=== PATIENT | female | born 1955 | race Two or more races ===

== ENCOUNTER 2017-08-04 10:57 | Day surgery (SDC) | payer MEDICAID ==
[~2017-08-04 10:57] MED LIST: Lactated Ringers 1,000 ML IV SCH; Lidocaine 1% 4 ML ONE; Lidocaine 1%/Sod Bicarbonate in NS 8.4% 1 ML Syringe PRN; Midazolam 1 MG/ML 2 ML SDV ONE; Ondansetron 4 MG/2 ML SDV ONE; Phenylephrine 1% 10 MG/ML SDV ONE; Propofol 200 MG/20 ML SDV ONE; Rocuronium 50 MG/5 ML Vial ONE; Sodium Chloride 0.9% 10 ML Syringe FLUSH PRN; Succinylcholine 200 MG/10 ML MDV ONE; fentaNYL 250 MCG/5 ML SDV ONE
--- NOTE | 2017-08-04 11:25 | PCM.PREANE ---
Preanesthetic Assessment - Procedure Proposed Procedure: laparoscopic cholecystectomy - Anesthesia/Transfusion/Family Hx Anesthesia History: Prior Anesthesia Without Reaction Family History of Anesthesia Reaction: No Transfusion History: No Prior Transfusion(s) - Review of Systems General: Chills Pulmonary: No Symptoms Cardiovascular: Other (HTN, hyperlipidemia ) Gastrointestinal: Abdominal Pain, Decreased Appetite, Nausea Neurological: Dizziness (patient gets dizzy easily and has motion sickness ) Other: Reports: Diabetes, Depression - Physical Assessment NPO Status Date: 08/04/17 NPO Status Time: 04:00 O2 Sat by Pulse Oximetry: 96 Respiratory Rate: 16 Vital Signs: Last Vital Signs Temp 36.4 C 08/04/17 11:05 Pulse 70 08/04/17 11:05 Resp 16 08/04/17 11:05 BP 178/86 H 08/04/17 11:05 Pulse Ox 96 08/04/17 11:05 Height: 1.6 m Weight: 67.585 kg ASA Class: 2 Mental Status: Alert & Oriented x3 Dentition: Reports: Dentures (upper and lower ) Thyro-Mental Finger Breadths: 3 Mouth Opening Finger Breadths: 3 ROM/Head Extension: Full Lungs: Clear to Auscultation Cardiovascular: Regular Rate, Regular Rhythm - Allergies Allergies/Adverse Reactions: Allergies Allergy/AdvReac Type Severity Reaction Status Date / Time No Known Allergies Allergy Verified 08/01/17 12:39 - Blood Blood Available: No Product(s) Available: None - Anesthesia Plan Beta Maryjo: Metoprolol Med Last Dose Date: 08/04/17 Med Last Dose Time: 10:30 - Acknowledgements Anesthesia Type Planned: General Anesthesia Pt an Appropriate Candidate for the Planned Anesthesia: Yes Alternatives and Risks of Anesthesia Discussed w Pt/Guardian: Yes Pt/Guardian Understands and Agrees with Anesthesia Plan: Yes PreAnesthesia Questionnaire HEENT History: Reports: Other (See Below) Other HEENT History: middle ear effusion, glasses, and dentures Cardiovascular History: Reports: High Cholesterol, Hypertension, Other (See Below) Other Cardiovascular History: atypical chest pain Respiratory History: Reports: Other (See Below) Other Respiratory History: latent TB Gastrointestinal History: Reports: Other (See Below) Other Gastrointestinal History: RUQ bloating, abdominal pain, gallbladder disease, constipation Genitourinary History: Reports: Other (See Below) Other Genitourinary History: hematuria, Left flank pain 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 History: Reports: Other (See Below) Other 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 History: L elbow pain, neck pain Neurological History: Reports: None Psychiatric History: Reports: Depression Endocrine/Metabolic History: Reports: Diabetes, Type II Hematologic History: Reports: None Immunologic History: Reports: None Oncologic (Cancer) History: Reports: None Dermatologic History: Reports: None - Past Surgical History Head Surgeries/Procedures: Reports: None Respiratory Surgical History: Reports: None GI Surgical History: Reports: None Neurological Surgical History: Reports: None Oncologic Surgical History: Reports: None - SUBSTANCE USE Smoking Status *Q: Never Smoker Second Hand Smoke Exposure: No Recreational Drug Use History: No - HOME MEDS Home Medications: Home Meds Aspirin [Halfprin] 81 mg PO DAILY 12/24/16 [History] Canagliflozin/Metformin HCl [Invokamet 50-1,000 mg Tablet] 1 tab PO BIDMEALS 06/02 [History] FLUoxetine [PROzac] 20 mg PO DAILY 12/24/16 [History] Metoprolol Succinate [Toprol XL] 100 mg PO DAILY 12/24/16 [History] Meloxicam 7.5 mg PO DAILY PRN 08/01/17 [History] atorvaSTATin [Lipitor] 40 mg PO DAILY 08/01/17 [History] - CURRENT (IN HOUSE) MEDS Current Meds: Current Medications Lactated Ringer's (Ringers, Lactated) 1,000 mls @ 125 mls/hr IV ASDIRECTED AHSAN Stop: 08/04/17 23:00 Lidocaine/Sodium Bicarbonate (Buffered Lidocaine 1% In Ns 8.4%) 0.25 ml .XX ONETIME PRN PRN Reason: Prior to IV Start Stop: 08/04/17 18:00 Sodium Chloride (Saline Flush) 10 ml FLUSH ASDIRECTED PRN PRN Reason: Keep Vein Open Stop: 08/04/17 18:00 Discontinued Medications Fentanyl (Sublimaze) Confirm Administered Dose 250 mcg .ROUTE .STK-MED ONE Stop: 08/04/17 10:34 Lidocaine HCl (Xylocaine-Mpf 1%) Confirm Administered Dose 4 mls @ as directed .ROUTE .STK-MED ONE Stop: 08/04/17 10:33 Midazolam HCl (Versed 1 Mg/Ml) Confirm Administered Dose 2 mg .ROUTE .STK-MED ONE Stop: 08/04/17 10:36 Ondansetron HCl (Zofran) Confirm Administered Dose 4 mg .ROUTE .STOnAir3G-MED ONE Stop: 08/04/17 10:33 Phenylephrine HCl (Emmanuel-Synephrine) Confirm Administered Dose 10 mg .ROUTE .STOnAir3G- MED ONE Stop: 08/04/17 10:42 Propofol (Diprivan 20 Ml) Confirm Administered Dose 200 mg .ROUTE .STOnAir3G-MED ONE Stop: 08/04/17 10:33 Rocuronium Castaner (Zemuron) Confirm Administered Dose 50 mg .ROUTE .STOnAir3G-MED ONE Stop: 08/04/17 10:33 Succinylcholine Chloride (Quelicin) Confirm Administered Dose 200 mg .ROUTE .[employer] -MED ONE Stop: 08/04/17 10:37
[2017-08-04] MEDS ORDERED: Scopolamine 1.5 MG Transdermal Patch TRDERM ONE (11:33)
[2017-08-04] MEDS ORDERED: Bupivacaine 0.5%/EPINEPHrine 1:200,000 50 ML MDV ONE (11:35)
[2017-08-04] MEDS: Lidocaine 1% with EPINEPHrine 1:100,000 20 ML MDV ONE ×2 (12:16→12:36)
[2017-08-04] MEDS ORDERED: ceFAZolin 1 GM Vial ONE (12:18)
[2017-08-04] MEDS ORDERED: fentaNYL 100 MCG/2 ML SDV IVPUSH PRN (12:29)
[2017-08-04] MEDS ORDERED: HYDROmorphone 0.5 MG/0.5 ML Syringe IVPUSH PRN (12:29)
[2017-08-04] MEDS ORDERED: Ondansetron 4 MG/2 ML SDV IVPUSH PRN (12:29)
[2017-08-04] MEDS ORDERED: Dexamethasone 4 MG/ML 5 ML MDV ONE (12:32)
[2017-08-04] MEDS ORDERED: ePHEDrine 50 MG/ML SDV ONE (12:33)
[2017-08-04] MEDS ORDERED: Ketorolac 30 MG/ML SDV ONE (12:39)
[2017-08-04] MEDS ORDERED: Propofol 200 MG/20 ML SDV ONE (12:41)
[2017-08-04] MEDS ORDERED: Glycopyrrolate 0.2 MG/ML SDV ONE (12:43)
[2017-08-04] MEDS ORDERED: Neostigmine Methylsulfate 10 MG/10 ML MDV ONE (12:44)
[2017-08-04] MEDS ORDERED: Haloperidol Lactate 5 MG/ML SDV IVPUSH ONE (13:15)
--- NOTE | 2017-08-04 13:22 | PCM.OPNOTE ---
- General Post-Op/Procedure Note Date of Surgery/Procedure: 08/04/17 Operative Procedure(s): Laparoscopic cholecystectomy Findings: Some adhesions between omentum and the gallbladder. Little sludge within the gallbladder Pre Op Diagnosis: Biliary colic secondary to gallbladder sludge Post-Op Diagnosis: Chronic cholecystitis Anesthesia Technique: General ET Tube, Local Primary Surgeon: Michael Travis Pathology: Gallbladder and contents EBL in mLs: 2 Complications: None Condition: Good Free Text/Narrative:: After adequate general endotracheal tube anesthesia was obtained the patient's abdomen was prepped and draped for a laparoscopic cholecystectomy. Local analgesia was given above the umbilicus followed by a separate incision down to the midline. The abdomen was entered followed by cannulation with a 12 mm camera port. CO2 pneumoperitoneum was obtained. Exploration revealed the findings above. 5 mm working ports 3 were placed along the right subcostal margin. The gallbladder was grasped and then elevated in a cephalad direction with the liver. Heidi's pouch was grasped and I used the cautery to delineate the cystic duct and cystic artery. I put a hole in the gallbladder with electrocautery and irrigated out the bile which flowed into the field. The cystic duct and artery were clipped in continuity and divided with scissors. I took the gallbladder down in a retrograde fashion and placed in a specimen bag and removed itthrough the umbilicus. I irrigated out the right upper quadrant again. The gallbladder bed was hemostatic and bile static. There was no obvious bowel injury. I decannulated the working ports under direct vision and there was no bleeding from these sites. I closed the camera port site with a figure-of -eight 0 Vicryl. The skin was closed with Vicryl as well. Steri-Strips and gauze were used for the dressing. Photographs were taken for the patient and for the record. There were no complications.
--- NOTE | 2017-08-04 13:27 | PCM.POSTAN ---
POST ANESTHESIA ASSESSMENT - MENTAL STATUS Mental Status: Alert, Oriented - VITAL SIGNS Pulse Rate: 80 SaO2: 98 Resp Rate: 10 Blood Pressure: 120/47 Temperature: 36.4 C - RESPIRATORY Respiratory Status: Respiratory Rate WNL, Airway Patent, O2 Saturation Stable, Supplemental Oxygen - CARDIOVASCULAR CV Status: Pulse Rate WNL, Blood Pressure Stable - GASTROINTESTINAL GI Status: No Symptoms - PAIN Pain Score: 0 - POST OP HYDRATION Hydration Status: Adequate & Stable
[2017-08-04 14:50] VITALS: BP 104/48
[2017-08-04] MEDS ORDERED: Acetaminophen/Codeine 300-30 MG Tab PO SCH (15:00)
== END 2017-08-04 15:44 | disposition home or self-care (01) ==
LOC: JD.SDS 10:57
PROVIDERS: ATTEND Surgery
DX: K81.1 Chronic cholecystitis (principal); I10 Essential (primary) hypertension; E78.00 Pure hypercholesterolemia, unspecified; E11.9 Type 2 diabetes mellitus without complications; F32.9 Major depressive disorder, single episode, unspecified; E66.9 Obesity, unspecified; Z68.27 Body mass index [BMI] 27.0-27.9, adult; E78.5 Hyperlipidemia, unspecified; Z77.22 Contact with and (suspected) exposure to environmental tobacco smoke (acute) (chronic); Z79.82 Long term (current) use of aspirin; Z79.899 Other long term (current) drug therapy
CPT/HCPCS: 47562; 82962; 93005; A9270; J0690; J1100; J1885; J2250; J2370; J2405; J2710; J3010; J3490; J7120; 00790; J0330; J2704

== ENCOUNTER 2018-01-07 02:12 | Emergency (ER) | payer MEDICAID ==
[2018-01-07 02:26] VITALS: BP 141/65
[2018-01-07] MEDS ORDERED: Sodium Chloride 0.9% 10 ML Syringe FLUSH PRN (02:33)
[2018-01-07] MEDS: Ondansetron 4 MG/2 ML SDV IVPUSH ONE (02:49)
[2018-01-07] MEDS: Sodium Chloride 0.9% 1,000 ML IV STA (02:49)
--- NOTE | 2018-01-07 04:23 | EDM.PDOC ---
ED HPI GENERAL MEDICAL PROBLEM - General Chief Complaint: Gastrointestinal Problem Stated Complaint: VOMITED/BUMPS UNDER EYE Time Seen by Provider: 01/07/18 02:27 Source of Information: Reports: Patient History Limitations: Reports: Language Barrier (Her family is here and they both speak Yakut) - History of Present Illness INITIAL COMMENTS - FREE TEXT/NARRATIVE: The patient presents with nausea, vomiting and abdominal cramps. This started this evening after taking her meds. She has no fever, chills, cough, chest pain , or dysuria. She has no diarrhea. She did not eat any bad food and she is not around anyone who is sick. She still has her appendix and gallbladder. Onset: Sudden Duration: Hour(s): Location: Reports: Abdomen Quality: Reports: Other (cramping) Severity: Moderate Improves with: Reports: None Worsens with: Reports: None Associated Symptoms: Reports: Nausea/Vomiting. Denies: Chest Pain, Cough, Fever /Chills, Headaches, Shortness of Breath Abdomen Pain Score (Numeric/FACES): 4 - Related Data Allergies Allergy/AdvReac Type Severity Reaction Status Date / Time No Known Allergies Allergy Verified 01/07/18 02:29 Home Meds: Home Meds Aspirin [Halfprin] 81 mg PO DAILY 12/24/16 [History] Canagliflozin/Metformin HCl [Invokamet 50-1,000 mg Tablet] 1 tab PO BIDMEALS 06/02 [History] FLUoxetine [PROzac] 20 mg PO DAILY 12/24/16 [History] Metoprolol Succinate [Toprol XL] 100 mg PO DAILY 12/24/16 [History] Meloxicam 7.5 mg PO DAILY PRN 08/01/17 [History] atorvaSTATin [Lipitor] 40 mg PO BEDTIME 08/01/17 [History] Nitrofurantoin Monohyd/M-Cryst [Macrobid 100 mg Capsule] 100 mg PO BID #10 capsule 01/07/18 [Rx] Ondansetron [Zofran ODT] 4 mg PO Q6H PRN #20 tab.dis 01/07/18 [Rx] Rifampin [Rifadin] 600 mg PO DAILY 01/07/18 [History] Past Medical History HEENT History: Reports: Other (See Below) Other HEENT History: middle ear effusion, glasses, and dentures Cardiovascular History: Reports: High Cholesterol, Hypertension, Other (See Below) Other Cardiovascular History: atypical chest pain Respiratory History: Reports: TB, Other (See Below) Other Respiratory History: latent TB Gastrointestinal History: Reports: Other (See Below) Other Gastrointestinal History: RUQ bloating, abdominal pain, gallbladder disease, constipation Genitourinary History: Reports: Other (See Below) Other Genitourinary History: hematuria, Left flank pain 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 History: Reports: Other (See Below) Other 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 History: L elbow pain, neck pain Neurological History: Reports: None Psychiatric History: Reports: Depression Endocrine/Metabolic History: Reports: Diabetes, Type II Hematologic History: Reports: None Immunologic History: Reports: None Oncologic (Cancer) History: Reports: None Dermatologic History: Reports: None - Past Surgical History Head Surgeries/Procedures: Reports: None Respiratory Surgical History: Reports: None GI Surgical History: Reports: None, Cholecystectomy Neurological Surgical History: Reports: None Oncologic Surgical History: Reports: None Social & Family History - Tobacco Use Smoking Status *Q: Never Smoker Second Hand Smoke Exposure: No - Caffeine Use Caffeine Use: Reports: Tea - Recreational Drug Use Recreational Drug Use: No - Living Situation & Occupation Living situation: Reports: with Family Occupation: Retired ED ROS GENERAL - Review of Systems Review Of Systems: See Below Constitutional: Reports: No Symptoms HEENT: Reports: No Symptoms Respiratory: Reports: No Symptoms Cardiovascular: Reports: No Symptoms Endocrine: Reports: No Symptoms GI/Abdominal: Reports: Abdominal Pain, Nausea, Vomiting. Denies: Diarrhea : Reports: No Symptoms 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: Reports: No Symptoms ED EXAM, GI/ABD - Physical Exam Exam: See Below Exam Limited By: No Limitations General Appearance: Alert, No Apparent Distress Ears: Normal External Exam Nose: Normal Inspection Head: Atraumatic, Normocephalic Neck: Normal Inspection Respiratory/Chest: No Respiratory Distress, Lungs Clear, Normal Breath Sounds Cardiovascular: Regular Rate, Rhythm, No Edema, No Murmur GI/Abdominal Exam: Soft, Non-Tender, No Organomegaly Extremities: Normal Inspection Course - Vital Signs Last Recorded V/S: Last Vital Signs Temp 97.1 F 01/07/18 02:22 Pulse 69 01/07/18 02:22 Resp 18 01/07/18 02:22 BP 141/65 H 01/07/18 02:22 Pulse Ox 96 01/07/18 02:22 - Orders/Labs/Meds Orders: Active Orders 24 hr Category Date Time Status Peripheral IV Care [RC] . DIRECTED Care 01/07/18 02:33 Active Sodium Chloride 0.9% [Saline Flush] Med 01/07/18 02:33 Active 10 ml FLUSH ASDIRECTED PRN ED Antiemetic Medication Reflex [OM.PC] Stat Oth 01/07/18 02:33 Ordered Peripheral IV Insertion Adult [OM.PC] Stat Oth 01/07/18 02:33 Ordered Medication Orders Sodium Chloride (Saline Flush) 10 ml FLUSH ASDIRECTED PRN PRN Reason: Keep Vein Open Labs: Laboratory Tests 01/07/18 01/07/18 01/07/18 Range/Units 02:28 02:54 02:54 WBC 9.26 (3.98-10.04) K/mm3 RBC 4.51 (3.98-5.22) M/mm3 Hgb 13.8 (11.2-15.7) gm/L Hct 40.8 (34.1-44.9) % MCV 90.5 (79.4-94.8) fl MCH 30.6 (25.6-32.2) pg MCHC 33.8 (32.2-35.5) g/dl RDW Std Deviation 40.4 (36.4-46.3) fL Plt Count 271 (182-369) K/mm3 MPV 10.1 (9.4-12.3) fl Neut % (Auto) 68.1 (34.0-71.1) % Lymph % (Auto) 20.3 (19.3-51.7) % [place] % (Auto) 6.9 (4.7-12.5) % Eos % (Auto) 3.5 (0.7-5.8) Baso % (Auto) 1.2 (0.1-1.2) % Neut # (Auto) 6.31 H (1.56-6.13) K/mm3 Lymph # (Auto) 1.88 (1.18-3.74) K/mm3 [place] # (Auto) 0.64 H (0.24-0.36) K/mm3 Eos # (Auto) 0.32 (0.04-0.36) K/mm3 Baso # (Auto) 0.11 H (0.01-0.08) K/mm3 Sodium 141 (136-145) mEq/L Potassium 3.8 (3.5-5.1) mEq/L Chloride 104 (98-107) mEq/L Carbon Dioxide 25 (21-32) mEq/L Anion Gap 15.8 H (5-15) BUN 22 H (7-18) mg/dL Creatinine 0.9 (0.55-1.02) mg/dL Est Cr Clr Drug Dosing 49.95 mL/min Estimated GFR (MDRD) > 60 (>60) mL/min BUN/Creatinine Ratio 24.4 H (14-18) Glucose 146 H (80-115) mg/dL POC Glucose 144 H (80-115) mg/dL Calcium 8.7 (8.5-10.1) mg/dL Total Bilirubin 0.5 (0.2-1.0) mg/dL AST 17 (15-37) U/L ALT 24 (14-59) U/L Alkaline Phosphatase 67 (46-116) U/L Total Protein 7.5 (6.4-8.2) g/dl Albumin 3.7 (3.4-5.0) g/dl Globulin 3.8 gm/dL Albumin/Globulin Ratio 1.0 (1-2) Lipase 154 (73-393) U/L Urine Color (Yellow) Urine Appearance (Clear) Urine pH (5.0-8.0) Ur Specific [place] (1.005-1.030) Urine Protein (Negative) Urine Glucose (UA) (Negative) Urine Ketones (Negative) Urine Occult Blood (Negative) Urine Nitrite (Negative) Urine Bilirubin (Negative) Urine Urobilinogen (0.2-1.0) Ur Leukocyte Esterase (Negative) Urine RBC (0-5) /hpf Urine WBC (0-5) /hpf Ur Epithelial Cells (0-5) /hpf Urine Bacteria (FEW) /hpf Urine Mucus (FEW) /hpf 01/07/18 Range/Units 04:05 WBC (3.98-10.04) K/mm3 RBC (3.98-5.22) M/mm3 Hgb (11.2-15.7) gm/L Hct (34.1-44.9) % MCV (79.4-94.8) fl MCH (25.6-32.2) pg MCHC (32.2-35.5) g/dl RDW Std Deviation (36.4-46.3) fL Plt Count (182-369) K/mm3 MPV (9.4-12.3) fl Neut % (Auto) (34.0-71.1) % Lymph % (Auto) (19.3-51.7) % [place] % (Auto) (4.7-12.5) % Eos % (Auto) (0.7-5.8) Baso % (Auto) (0.1-1.2) % Neut # (Auto) (1.56-6.13) K/mm3 Lymph # (Auto) (1.18-3.74) K/mm3 [place] # (Auto) (0.24-0.36) K/mm3 Eos # (Auto) (0.04-0.36) K/mm3 Baso # (Auto) (0.01-0.08) K/mm3 Sodium (136-145) mEq/L Potassium (3.5-5.1) mEq/L Chloride (98-107) mEq/L Carbon Dioxide (21-32) mEq/L Anion Gap (5-15) BUN (7-18) mg/dL Creatinine (0.55-1.02) mg/dL Est Cr Clr Drug Dosing mL/min Estimated GFR (MDRD) (>60) mL/min BUN/Creatinine Ratio (14-18) Glucose (80-115) mg/dL POC Glucose (80-115) mg/dL Calcium (8.5-10.1) mg/dL Total Bilirubin (0.2-1.0) mg/dL AST (15-37) U/L ALT (14-59) U/L Alkaline Phosphatase (46-116) U/L Total Protein (6.4-8.2) g/dl Albumin (3.4-5.0) g/dl Globulin gm/dL Albumin/Globulin Ratio (1-2) Lipase (73-393) U/L Urine Color Dark yellow (Yellow) Urine Appearance Clear (Clear) Urine pH 6.0 (5.0-8.0) Ur Specific [place] 1.010 (1.005-1.030) Urine Protein Negative (Negative) Urine Glucose (UA) 2+ H (Negative) Urine Ketones Negative (Negative) Urine Occult Blood 1+ H (Negative) Urine Nitrite Positive H (Negative) Urine Bilirubin Negative (Negative) Urine Urobilinogen 0.2 (0.2-1.0) Ur Leukocyte Esterase Trace H (Negative) Urine RBC 0-5 (0-5) /hpf Urine WBC 5-10 H (0-5) /hpf Ur Epithelial Cells 0-5 (0-5) /hpf Urine Bacteria Few (FEW) /hpf Urine Mucus Few (FEW) /hpf Meds: Medications Generic Name Dose Route Start Last Admin Trade Name Freq PRN Reason Stop Dose Admin Sodium Chloride 10 ml 01/07/18 02:33 Saline Flush FLUSH ASDIRECTED PRN Keep Vein Open Discontinued Medications Generic Name Dose Route Start Last Admin Trade Name Freq PRN Reason Stop Dose Admin Sodium Chloride 1,000 mls @ 1,000 mls/hr 01/07/18 02:33 01/07/18 02:49 Normal Saline IV 01/07/18 03:32 1,000 mls/hr .BOLUS STA Administration Ondansetron HCl 4 mg 01/07/18 02:33 01/07/18 02:49 Zofran IVPUSH 01/07/18 02:34 4 mg ONETIME ONE Administration - Re-Assessments/Exams Free Text/Narrative Re-Assessment/Exam: 01/07/18 04:22 I ordered an IV NS 1L bolus, zofran 4mg IV, labs and a UA. Her CBC was negative. Her anion gap was slightly elevated at 15.8. Her BUN was elevated at 22. Her glucose was 146. Her lipase was negative. Her UA shows she has a UTI. 01/07/18 04:36 I will give her a dose of macrobid here and a prescription for more. Departure - Departure Time of Disposition: 04:40 Disposition: Home, Self-Care 01 Condition: Good Clinical Impression: Nausea and vomiting Qualifiers: Vomiting type: unspecified Vomiting Intractability: non-intractable Qualified Code(s): R11.2 - Nausea with vomiting, unspecified - Discharge Information Prescriptions: Nitrofurantoin Monohyd/M-Cryst [Macrobid 100 mg Capsule] 100 mg PO BID #10 capsule Ondansetron [Zofran ODT] 4 mg PO Q6H PRN #20 tab.dis PRN Reason: Nausea\vomiting Referrals: Ana Andrade PA [Primary Care Provider] - 1 Week Forms: ED Department Discharge Additional Instructions: Drink plenty of fluids. Take zofran every 6 hours as needed for nausea and vomiting. Take the macrobid 2 times per day for 5 days. Please return if you are worse. - My Orders Last 24 Hours: My Active Orders 01/07/18 02:33 Peripheral IV Care [RC] . DIRECTED Sodium Chloride 0.9% [Saline Flush] 10 ml FLUSH ASDIRECTED PRN ED Antiemetic Medication Reflex [OM.PC] Stat Peripheral IV Insertion Adult [OM.PC] Stat - Assessment/Plan Last 24 Hours: My Active Orders 01/07/18 02:33 Peripheral IV Care [RC] . DIRECTED Sodium Chloride 0.9% [Saline Flush] 10 ml FLUSH ASDIRECTED PRN ED Antiemetic Medication Reflex [OM.PC] Stat Peripheral IV Insertion Adult [OM.PC] Stat
[2018-01-07] MEDS: Nitrofurantoin Monohydrate/Macrocrystalline 100 MG Cap PO ONE (04:47)
== END 2018-01-07 04:48 | disposition home or self-care (01) ==
LOC: JD.ED 02:12
DX: R11.2 Nausea with vomiting, unspecified (principal); E78.00 Pure hypercholesterolemia, unspecified; I10 Essential (primary) hypertension; E11.9 Type 2 diabetes mellitus without complications; Z79.82 Long term (current) use of aspirin; Z79.899 Other long term (current) drug therapy
CPT/HCPCS: 36415; 80053; 81001; 82962; 83690; 85025; 96361; 96374; 99284; A9270; J2405; J7040

== ENCOUNTER 2018-04-03 23:40 | Emergency (ER) | payer MEDICAID ==
[2018-04-04] MEDS ORDERED: cloNIDine 0.1 MG Tab PO ONE (00:21)
[2018-04-04] MEDS ORDERED: LORazepam 2 MG/ML SDV IVPUSH ONE (00:21)
--- NOTE | 2018-04-04 00:29 | EDM.PDOC ---
ED HPI GENERAL MEDICAL PROBLEM - General Chief Complaint: Cardiovascular Problem Stated Complaint: high blood pressure difficulty breathing Time Seen by Provider: 04/04/18 00:19 Source of Information: Reports: Patient, Family History Limitations: Reports: No Limitations - History of Present Illness INITIAL COMMENTS - FREE TEXT/NARRATIVE: This is a 62-year-old female. This evening she was lifting a 5 gallon pail of water she felt pain in her chest she got short of breath and her blood pressure went up and they brought her to the ER for evaluation. When she arrived her blood pressure was elevated and she was complaining of left-sided chest pain. She does have a history of myocardial infarction but many years ago. She has a family doctor that she follows up on a regular basis. Initially her blood pressure was 189/80. By the time I got into the room it was much better as in 154/92. He still has some mild symptoms in the left chest wall but no pain into her jaw no pain down her arm or into her shoulder. She's had no nausea and vomiting. She denies any other acute illnesses. Her son is acting as her equine intern. Chest Pain Score (Numeric/FACES): 4 - Related Data Allergies Allergy/AdvReac Type Severity Reaction Status Date / Time No Known Allergies Allergy Verified 04/03/18 23:51 Home Meds: Home Meds Aspirin [Halfprin] 81 mg PO DAILY 12/24/16 [History] Canagliflozin/Metformin HCl [Invokamet 50-1,000 mg Tablet] 1 tab PO BIDMEALS 06/02 [History] FLUoxetine [PROzac] 20 mg PO DAILY 12/24/16 [History] Metoprolol Succinate [Toprol XL] 100 mg PO DAILY 12/24/16 [History] atorvaSTATin [Lipitor] 40 mg PO BEDTIME 08/01/17 [History] Lisinopril 5 mg PO DAILY 04/03/18 [History] Past Medical History HEENT History: Reports: Other (See Below) Other HEENT History: middle ear effusion, glasses, and dentures Cardiovascular History: Reports: High Cholesterol, Hypertension, Other (See Below) Other Cardiovascular History: atypical chest pain Respiratory History: Reports: TB, Other (See Below) Other Respiratory History: latent TB Gastrointestinal History: Reports: Other (See Below) Other Gastrointestinal History: RUQ bloating, abdominal pain, gallbladder disease, constipation Genitourinary History: Reports: Other (See Below) Other Genitourinary History: hematuria, Left flank pain LOT PORTER History: Reports: None 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 History: Reports: Other (See Below) Other 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 History: L elbow pain, neck pain Neurological History: Reports: None Psychiatric History: Reports: Depression Endocrine/Metabolic History: Reports: Diabetes, Type II Hematologic History: Reports: None Immunologic History: Reports: None Oncologic (Cancer) History: Reports: None Dermatologic History: Reports: None - Past Surgical History Head Surgeries/Procedures: Reports: None Respiratory Surgical History: Reports: None GI Surgical History: Reports: None, Cholecystectomy Neurological Surgical History: Reports: None Oncologic Surgical History: Reports: None Social & Family History - Tobacco Use Smoking Status *Q: Never Smoker - Caffeine Use Caffeine Use: Reports: Tea - Living Situation & Occupation Living situation: Reports: with Family Occupation: Retired ED ROS GENERAL - Review of Systems Review Of Systems: See Below Constitutional: Denies: Fever, Chills HEENT: Reports: No Symptoms Respiratory: Reports: Shortness of Breath. Denies: Wheezing, Cough Cardiovascular: Reports: Chest Pain. Denies: Edema Endocrine: Reports: No Symptoms GI/Abdominal: Reports: No Symptoms : Reports: No Symptoms 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: Reports: No Symptoms Skin: Reports: No Symptoms Neurological: Reports: No Symptoms Psychiatric: Reports: Anxiety Hematologic/Lymphatic: Reports: No Symptoms ED EXAM, GENERAL - Physical Exam Exam: See Below Exam Limited By: No Limitations General Appearance: Alert, WD/WN, No Apparent Distress Eye Exam: Bilateral Eye: Normal Inspection Ears: Normal External Exam, Normal Canal, Normal TMs Nose: Normal Inspection Throat/Mouth: Normal Inspection, Normal Lips, Normal Voice, No Airway Compromise Head: Normocephalic Neck: Supple Respiratory/Chest: No Respiratory Distress, Lungs Clear, Normal Breath Sounds Cardiovascular: Regular Rate, Rhythm, No Edema, No Murmur GI/Abdominal: Soft, Non-Tender Back Exam: Normal Inspection, Full Range of Motion Extremities: Normal Inspection, Normal Range of Motion Neurological: Alert, Oriented Psychiatric: Normal Affect, Normal Mood Skin Exam: Warm, Dry EKG INTERPRETATION EKG Date: 04/03/18 Time: 23:57 EKG Interpretation Comments: Normal sinus rhythm no acute ST or T-wave changes, no ischemia noted. Course - Vital Signs Last Recorded V/S: Last Vital Signs Temp 98.5 F 04/03/18 23:47 Pulse 66 04/04/18 01:01 Resp 19 04/04/18 01:01 BP 127/66 04/04/18 01:01 Pulse Ox 93 L 04/04/18 01:01 - Orders/Labs/Meds Orders: Active Orders 24 hr Category Date Time Status EKG Documentation Completion [RC] ASDIRECTED Care 04/03/18 23:54 Active EKG 12 Lead [EK] Stat Ther 04/03/18 23:54 Ordered Labs: Laboratory Tests 04/04/18 04/04/18 Range/Units 00:05 00:05 WBC 8.48 (3.98-10.04) K/mm3 RBC 4.37 (3.98-5.22) M/mm3 Hgb 13.2 (11.2-15.7) gm/L Hct 39.8 (34.1-44.9) % MCV 91.1 (79.4-94.8) fl MCH 30.2 (25.6-32.2) pg MCHC 33.2 (32.2-35.5) g/dl RDW Std Deviation 39.8 (36.4-46.3) fL Plt Count 261 (182-369) K/mm3 MPV 10.7 (9.4-12.3) fl Neut % (Auto) 51.2 (34.0-71.1) % Lymph % (Auto) 33.5 (19.3-51.7) % Dale % (Auto) 9.6 (4.7-12.5) % Eos % (Auto) 5.1 (0.7-5.8) Baso % (Auto) 0.4 (0.1-1.2) % Neut # (Auto) 4.35 (1.56-6.13) K/mm3 Lymph # (Auto) 2.84 (1.18-3.74) K/mm3 Dale # (Auto) 0.81 H (0.24-0.36) K/mm3 Eos # (Auto) 0.43 H (0.04-0.36) K/mm3 Baso # (Auto) 0.03 (0.01-0.08) K/mm3 Sodium 137 (136-145) mEq/L Potassium 4.0 (3.5-5.1) mEq/L Chloride 102 (98-107) mEq/L Carbon Dioxide 25 (21-32) mEq/L Anion Gap 14.0 (5-15) BUN 23 H (7-18) mg/dL Creatinine 1.2 H (0.55-1.02) mg/dL Est Cr Clr Drug Dosing TNP Estimated GFR (MDRD) 45 (>60) mL/min BUN/Creatinine Ratio 19.2 H (14-18) Glucose 198 H (80-115) mg/dL Calcium 9.0 (8.5-10.1) mg/dL Total Bilirubin 0.2 (0.2-1.0) mg/dL AST 19 (15-37) U/L ALT 23 (14-59) U/L Alkaline Phosphatase 69 (46-116) U/L Troponin I < 0.017 (0.00-0.056) ng/mL Total Protein 7.4 (6.4-8.2) g/dl Albumin 3.6 (3.4-5.0) g/dl Globulin 3.8 gm/dL Albumin/Globulin Ratio 1.0 (1-2) Meds: Medications Discontinued Medications Generic Name Dose Route Start Last Admin Trade Name Freq PRN Reason Stop Dose Admin Clonidine HCl 0.1 mg 04/04/18 00:21 04/04/18 00:32 Catapres PO 04/04/18 00:22 0.1 mg ONETIME ONE Administration Lorazepam 0.25 mg 04/04/18 00:21 04/04/18 00:29 Ativan IVPUSH 04/04/18 00:22 0.25 mg ONETIME ONE Administration - Re-Assessments/Exams Free Text/Narrative Re-Assessment/Exam: 04/04/18 01:27 I spoke to the family and the patient regarding the test results. Her blood pressure is now 126/82 and she is feeling fine and has no chest pain. I let them know that her EKG was normal and that her heart enzymes were normal. They want to go home. Departure - Departure Time of Disposition: 01:27 Disposition: Home, Self-Care 01 Condition: Good Clinical Impression: Elevated blood pressure reading Chest pain Qualifiers: Chest pain type: unspecified Qualified Code(s): R07.9 - Chest pain, unspecified Referrals: Ana Andrade PA [Primary Care Provider] - Forms: ED Department Discharge Additional Instructions: No more lifting heavy things since you might hurt your chest and it makes your blood pressure go up, follow up with your family doctor this week for recheck, return to the ER if your symptoms return or get worse - My Orders Last 24 Hours: My Active Orders 04/03/18 23:54 EKG Documentation Completion [RC] ASDIRECTED EKG 12 Lead [EK] Stat - Assessment/Plan Last 24 Hours: My Active Orders 04/03/18 23:54 EKG Documentation Completion [RC] ASDIRECTED EKG 12 Lead [EK] Stat
[2018-04-04 01:32] VITALS: BP 115/65
== END 2018-04-04 01:32 | disposition home or self-care (01) ==
LOC: JD.ED 23:40
DX: R07.9 Chest pain, unspecified (principal); I10 Essential (primary) hypertension; E78.00 Pure hypercholesterolemia, unspecified; E11.9 Type 2 diabetes mellitus without complications; Z79.82 Long term (current) use of aspirin; Z79.899 Other long term (current) drug therapy
CPT/HCPCS: 36415; 80053; 84484; 85025; 93005; 96374; 99285; A9270; J2060; 93010; 99284

== ENCOUNTER 2020-09-21 19:48 | Emergency (ER) | payer MEDICAID ==
[2020-09-21 20:10] VITALS: BP 170/80; PULSE 58
[2020-09-21] MEDS ORDERED: Acetaminophen/oxyCODONE 325-5 MG Tab PO ONE (20:25)
[2020-09-21] MEDS ORDERED: Ibuprofen 600 MG Tab PO ONE (20:25)
[2020-09-21] MEDS ORDERED: Ondansetron 4 MG Tab.DIS PO ONE (20:25)
--- NOTE | 2020-09-21 20:29 | EDM.PDOC ---
ED HPI GENERAL MEDICAL PROBLEM - General Chief Complaint: Respiratory Problem Stated Complaint: SORE THROAT,FEVER EXPOSED TO COVID-19 Time Seen by Provider: 09/21/20 20:10 Source of Information: Reports: Patient History Limitations: Reports: Language Barrier (speaks mostly estonian. Computer translate utilized. ) - History of Present Illness INITIAL COMMENTS - FREE TEXT/NARRATIVE: 65-year-old female of [place] ancestry presents to the ED for evaluation of nasal congestion severe sore throat paroxysmal nonproductive cough with retention of ability to eat drink no nausea vomiting or diarrhea. Cough is nonproductive. She is a type II diabetic for 10 years ,controlled with Invokamet 50/1000mg and diet. She has hypertension for 15 years. Symptoms started within the last 2 and half days. 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 No one she knows at home is ill with COVID-19 illness. Onset: Sudden Onset Date: 09/19/20 Duration: Day(s):, Constant (Constant sore throat.), Getting Worse Location: Reports: Face (Sore throat), Chest (Fever no chills. Minimal paroxysmal cough nonproductive), Generalized (Generalized myalgia.), Other Quality: Reports: Other Severity: Moderate (Burning throat pain) Improves with: Reports: None Worsens with: Reports: None Context: Denies: Activity, Exercise, Lifting, Sick Contact, Trauma, Other Associated Symptoms: Reports: Cough, Fever/Chills, Malaise. Denies: No Other Symptoms, Confusion, Chest Pain, cough w sputum, Diaphoresis, Headaches, Loss of Appetite, Nausea/Vomiting (Without chills), Rash, Seizure, Shortness of Breath, Syncope, Weakness Treatments INSPECTOR MULTIFOCAL LENS: Reports: Acetaminophen - Related Data Allergies Allergy/AdvReac Type Severity Reaction Status Date / Time No Known Allergies Allergy Verified 05/22/19 12:42 Home Meds: Home Meds Aspirin [Halfprin] 81 mg PO DAILY 12/24/16 [History] FLUoxetine [PROzac] 40 mg PO DAILY 12/24/16 [History] Metoprolol Succinate [Toprol XL] 100 mg PO DAILY 12/24/16 [History] Lisinopril 5 mg PO DAILY 04/03/18 [History] Canagliflozin/Metformin HCl [Invokamet 50-1,000 mg Tablet] 1 tab PO BIDMEALS 09/21/20 [History] Hydrocodone/Chlorphen P-Stirex [Hydrocodone-Chlorphen ER Susp] 5 ml PO Q12H PRN #60 ml 09/21/20 [Rx] Past Medical History HEENT History: Reports: Other (See Below) Other HEENT History: middle ear effusion, glasses, and dentures Cardiovascular History: Reports: High Cholesterol, Hypertension, Other (See Below) Other Cardiovascular History: atypical chest pain Respiratory History: Reports: TB, Other (See Below) Other Respiratory History: latent TB Gastrointestinal History: Reports: Other (See Below) Other Gastrointestinal History: RUQ bloating, abdominal pain, gallbladder disease, constipation Genitourinary History: Reports: Other (See Below) Other Genitourinary History: hematuria, Left flank pain [employer]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 History: Reports: Other (See Below) Other 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 History: L elbow pain, neck pain Neurological History: Reports: None Psychiatric History: Reports: Depression Endocrine/Metabolic History: Reports: Diabetes, Type II (Controlled with diet and invokamet mg daily) Hematologic History: Reports: None Immunologic History: Reports: None Oncologic (Cancer) History: Reports: None Dermatologic History: Reports: None - Infectious Disease History Infectious Disease History: Reports: TB - Past Surgical History Head Surgeries/Procedures: Reports: None Respiratory Surgical History: Reports: None GI Surgical History: Reports: None, Cholecystectomy Neurological Surgical History: Reports: None Oncologic Surgical History: Reports: None Social & Family History - Family History Family Medical History: Noncontributory - Tobacco Use Tobacco Use Status *Q: Never Tobacco User - Caffeine Use Caffeine Use: Reports: None - Recreational Drug Use Recreational Drug Use: No - Living Situation & Occupation Living situation: Reports: with Family ( housewife.) Occupation: Retired ED ROS GENERAL - Review of Systems Review Of Systems: See Below Constitutional: Reports: Fever, Malaise, Weakness, Fatigue, Decreased Appetite. Denies: Chills, Weight Loss HEENT: Reports: Throat Pain Respiratory: Reports: Cough (non productive. ). Denies: Shortness of Breath, Wheezing, Pleuritic Chest Pain Cardiovascular: Reports: Blood Pressure Problem (for 15 years) Endocrine: Reports: Fatigue GI/Abdominal: Reports: Decreased Appetite. Denies: Diarrhea, Nausea, Vomiting : Reports: No Symptoms 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: Reports: No Symptoms Skin: Reports: No Symptoms Neurological: Denies: Confusion, Dizziness, Headache, Numbness, Seizure, Syncope, Tingling, Difficulty Walking, Weakness Psychiatric: Reports: Depression ( controlled with Prozac 40mg once daily. ) Hematologic/Lymphatic: Reports: No Symptoms Immunologic: Reports: No Symptoms ED EXAM, GENERAL - Physical Exam Exam: See Below Exam Limited By: Language Barrier (speaks mostly estonian. Utilized computer translater.) General Appearance: Alert, WD/WN, No Apparent Distress, Other (Temperature is 35.9. She does not feel warm to palpation. Pulse is a 58 and sinus with respect rate of 19 sats are 95% room air BP 170/80) Eye Exam: Bilateral Eye: Normal Inspection, PERRL Ears: Normal TMs Throat/Mouth: Normal Inspection (Is dry and coated.), Normal Oropharynx, Other Head: Atraumatic (Oropharynx without any obvious erythema.), Normocephalic Neck: Normal Inspection, Supple, Non-Tender, Full Range of Motion. No: Carotid Bruit, Lymphadenopathy (L), Lymphadenopathy (R) Respiratory/Chest: No Respiratory Distress, Lungs Clear, Normal Breath Sounds, No Accessory Muscle Use Cardiovascular: Normal Peripheral Pulses, Regular Rate, Rhythm, No Edema, No Gallop, No JVD, No Murmur, No Rub Peripheral Pulses: 2+: Posterior Tibial (L), Posterior Tibial (R), Dorsalis Pedis (L), Dorsalis Pedis (R), 3+: Carotid (L), Carotid (R) GI/Abdominal: Normal Bowel Sounds, Soft, Non-Tender, No Organomegaly, No Abnormal Bruit, No Mass, Pelvis Stable. No: Guarding, Rigid, Rebound Back Exam: Normal Inspection, Full Range of Motion. No: CVA Tenderness (L), CVA Tenderness (R) Extremities: Normal Inspection, Normal Range of Motion, Non-Tender, No Pedal Edema Neurological: Alert, Oriented, CN II-XII Intact, Normal Cognition Psychiatric: Normal Affect, Normal Mood Skin Exam: Warm, Dry, Intact, Normal Color, No Rash Course - Vital Signs Last Recorded V/S: Last Vital Signs Temp 35.9 C L 09/21/20 20:02 Pulse 58 L 09/21/20 20:02 Resp 19 09/21/20 20:02 BP 170/80 H 09/21/20 20: Pulse Ox 95 09/21/20 20:02 - Orders/Labs/Meds Orders: Active Orders 24 hr Category Date Time Status Chest 1V Frontal [CR] Stat Exams 09/21/20 20:26 Taken CORONAVIRUS COVID-19 PCR PHL Stat Lab 09/21/20 20:41 Received Meds: Medications Discontinued Medications Generic Name Dose Route Start Last Admin Trade Name Mark PRN Reason Stop Dose Admin Ibuprofen 600 mg 09/21/20 20:25 09/21/20 20:35 Motrin PO 09/21/20 20:26 600 mg ONETIME ONE Administration Ondansetron HCl 4 mg 09/21/20 20:25 09/21/20 20:36 Zofran Odt PO 09/21/20 20:26 4 mg ONETIME ONE Administration Oxycodone/Acetaminophen 1 tab 09/21/20 20:25 09/21/20 20:35 Percocet 325-5 Mg PO 09/21/20 20:26 1 tab ONETIME ONE Administration Promethazine HCl/Codeine 10 ml 09/21/20 21:52 Phenergan With Codeine PO 09/21/20 21:53 ONETIME ONE - Radiology Interpretation Free Text/Narrative:: 65-year-old female of [place] ancestry. She presents to the ED complaining primarily of sore throat making it somewhat difficult to swallow and eat. This is been present for 2 days. Associated mild paroxysmal cough. No significant fever or chills. Mild associated nasal congestion. Ear exam is normal tongue is dry and coated. Chest is clear to osseous percussion . Heart is normal sinus rhythm. Benign abdomen. Integument normal no dependent edema. Possible COVID-19 illness. Covid screen will be carried out. It will be sent to [facility]. She will have 1 view chest x-ray carried out. Given Percocet tabs five 325 mg x 1 orally with Zofran 4 mg sublingual for throat pain. Given Motrin 600 mg p.o. as well. O2 sats are 95% at this time. Labs not felt to be indicated. - Re-Assessments/Exams Free Text/Narrative Re-Assessment/Exam: 09/21/20 21:41 chest x-ray reveals very minimal streaky infiltrate with peribronchial cuffing left perihilar area. There is mild diffuse fibrobullous lung disease. The lungs otherwise are clear with no signs of pneumonia. Right hemidiaphragm at least one leaflet is elevated compared with paralysis. Cardiac silhouette is normal. 09/21/20 21:48 her chief complaint is sore throat and beginnings of paroxysmal cough. Going to treat her with Phenergan with codeine cough syrup 10 mils by mouth at this time. I will write a prescription for Tussionex mils every 12 hours. For cough relief. COVID-19 screen results will not likely be available until Friday. He is self quarantining at any rate. Departure - Departure Time of Disposition: 21:51 Disposition: Home, Self-Care 01 Condition: Fair Clinical Impression: Viral upper respiratory tract infection with cough, Viral pharyngitis - Discharge Information *PRESCRIPTION DRUG MONITORING PROGRAM REVIEWED*: Not Applicable *COPY OF PRESCRIPTION DRUG MONITORING REPORT IN PATIENT ADRYAN: Not Applicable Prescriptions: Hydrocodone/Chlorphen P-Stirex [Hydrocodone-Chlorphen ER Susp] 5 ml PO Q12H PRN #60 ml PRN Reason: Cough relief Instructions: Pharyngitis Referrals: Everardo Trevino PA-C [Primary Care Provider] - Forms: ED Department Discharge Additional Instructions: Evaluation in the emergency room today in regards to development of upper respiratory tract infection which appears to be a viral etiology. Mild nasal congestion associated with sore throat. Beginnings of a mild cough. So far no nausea vomiting or diarrhea. Clinically likely the beginnings of COVID-19 illness. Chest x-ray at this time is negative for any viral pneumonia. Throat does not show any signs of bacterial infection. COVID-19 screen has been obtained and sent to public health department. It usually will be 48 hours before we get the answers back on this test. In the meantime he should self quarantine. Suggest Motrin 600 mg every 6 hours to reduce pain and inflammation . Also for fever relief. You are treated with Phenergan with codeine cough syrup in the emergency room tonight so that you might be able to sleep. Fill prescription tomorrow for Tussionex cough syrup 5 mils every 12 hours necessary for cough relief. A dose should be planned on taking 1 hour before bedtime as it takes about an hour to start to work. Symptoms are likely to worsen over the next week to 10 days. Day 8-10 of illness seems to be the worst and clinically would be on day 2 to to 3 of illness. But sugars are likely to elevate during current illness. However they may not as often appetite is severely suppressed from this illness. Sepsis Event Note (ED) - Evaluation Sepsis Screening Result: No Definite Risk - Focused Exam Vital Signs: Vital Signs Temp Pulse Resp BP Pulse Ox 09/21/20 20:02 35.9 C L 58 L 19 170/80 H 95 - My Orders Last 24 Hours: My Active Orders 09/21/20 20:26 Chest 1V Frontal [CR] Stat 09/21/20 20:41 CORONAVIRUS COVID-19 PCR PHL Stat - Assessment/Plan Last 24 Hours: My Active Orders 09/21/20 20:26 Chest 1V Frontal [CR] Stat 09/21/20 20:41 CORONAVIRUS COVID-19 PCR PHL Stat
[2020-09-21] MEDS ORDERED: Codeine/Promethazine 10-6.25 MG/5 ML Syrup 5 ML UD Cup PO ONE (21:52)
--- NOTE | 2020-09-22 09:05 | CR ---
PROCEDURE INFORMATION: Exam: XR Chest, 1 View Exam date and time: 09/21/2020 8:57 PM Age: 65 years old Clinical indication: Cough and fever TECHNIQUE: Imaging protocol: XR of the chest Views: 1 view. COMPARISON: CR Chest 1V Frontal 05/22/2019 1:39 PM FINDINGS: Lungs: There is mild fibrobullous lung disease. Pleural space: Costophrenic angles are sharp. No pneumothorax. Heart/Mediastinum: Unremarkable. No cardiomegaly. Bones/joints: Age appropriate. IMPRESSION: 1. No pneumonia. 2. No significant interval change when compared to the CR Chest 1V Frontal 05/22/2019 1:39 PM. Thank you for allowing us to participate in the care of your patient. Dictated and Authenticated by: Yury Coats MD 09/21/2020 10:31 PM Central Time ([place] & [place]) [facility]
== END 2020-09-21 22:21 | disposition home or self-care (01) ==
LOC: JD.ED 19:48
DX: J02.9 Acute pharyngitis, unspecified (principal); I10 Essential (primary) hypertension; F32.9 Major depressive disorder, single episode, unspecified; E11.9 Type 2 diabetes mellitus without complications; Z79.84 Long term (current) use of oral hypoglycemic drugs; Z20.828 Contact with and (suspected) exposure to other viral communicable diseases; Z79.82 Long term (current) use of aspirin; Z79.899 Other long term (current) drug therapy
CPT/HCPCS: 71045; 87635; 99283; A9270; U0002

== ENCOUNTER 2021-07-23 21:39 | Emergency (ER) | payer MEDICARE, MEDICAID ==
[2021-07-23 22:01] VITALS: BP 180/85; PULSE 90
[2021-07-23] MEDS ORDERED: Lisinopril 5 MG Tab PO ONE (22:16)
[2021-07-23] MEDS ORDERED: Metoprolol Succinate 50 MG Tab.ER PO STA (22:17)
--- NOTE | 2021-07-23 22:24 | EDM.PDOC ---
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 Rae is a very pleasant 65-year-old woman who now presents the ED stating that she ran out of her lisinopril and metoprolol succinate yesterday morning, 07/22/2021. She did not take either this morning. She is requesting a refill. Here in the ED, the patient's initial BP is found to be elevated at 180/85, otherwise, she is hemodynamically stable, afebrile, saturating 96% on room air. She appears to be comfortable, in no acute distress. The patient denies having a recent fever, chills, sore throat, ear pain, nasal or sinus congestion, cough, dyspnea, chest pain, palpitations, nausea, vomiting, constipation, diarrhea, abdominal pain, urinary symptoms, recent weight gain or weight loss, recent bloody bowel movements or black bowel movements, recent joint aches, headaches, or rashes. The patient's PCP is RAY Maldonado. She has received 2 COVID vaccinations. - Related Data Allergies Allergy/AdvReac Type Severity Reaction Status Date / Time No Known Allergies Allergy Verified 05/22/19 12:42 Home Meds: Home Meds Aspirin [Halfprin] 81 mg PO DAILY 12/24/16 [History] FLUoxetine [PROzac] 40 mg PO DAILY 12/24/16 [History] Metoprolol Succinate [Toprol XL] 100 mg PO DAILY 12/24/16 [History] Lisinopril 5 mg PO DAILY 04/03/18 [History] Metoprolol Succinate 1 tab PO QAM #7 tab.er.24h 07/23/21 [Rx] atorvaSTATin Calcium [Lipitor] 40 mg PO DAILY 07/23/21 [History] lisinopriL [Lisinopril] 1 tab PO QAM #7 tablet 07/23/21 [Rx] Past Medical History HEENT History: Reports: Impaired Vision (wears glasses), Other (See Below) (Dentures) Cardiovascular History: Reports: High Cholesterol, Hypertension Psychiatric History: Reports: Depression Endocrine/Metabolic History: Reports: Diabetes, Type II - Past Surgical History HEENT Surgical History: Reports: Oral Surgery (dental extractions) GI Surgical History: Reports: Appendectomy Social & Family History - Tobacco Use Tobacco Use Status *Q: Never Tobacco User Second Hand Smoke Exposure: No - Caffeine Use Caffeine Use: Reports: Coffee - Alcohol Use Alcohol Use History: No - Recreational Drug Use Recreational Drug Use: No - Living Situation & Occupation Living situation: Reports: , with Spouse Occupation: Retired ED ROS GENERAL - Review of Systems Review Of Systems: Comprehensive ROS is negative, except as noted in HPI. ED EXAM, GENERAL - Physical Exam Exam: See Below Exam Limited By: No Limitations General Appearance: Alert, WD/WN, No Apparent Distress Eye Exam: Bilateral Eye: EOMI, Normal Inspection Ears: Normal External Exam, Hearing Grossly Normal Nose: Normal Inspection Throat/Mouth: Normal Inspection, Normal Lips, Normal Voice, No Airway Compromise Head: Atraumatic, Normocephalic Neck: Normal Inspection, Full Range of Motion Respiratory/Chest: No Respiratory Distress, Lungs Clear, Normal Breath Sounds, No Accessory Muscle Use Cardiovascular: Normal Peripheral Pulses, Regular Rate, Rhythm, No Edema, No Gallop, No JVD, No Murmur, No Rub Peripheral Pulses: 3+: Radial (L), Radial (R) GI/Abdominal: Normal Bowel Sounds, Soft, Non-Tender, No Organomegaly, No Distention, No Abnormal Bruit, No Mass Back Exam: Normal Inspection, Full Range of Motion, NT Extremities: Normal Inspection, Normal Range of Motion, No Pedal Edema, Normal Capillary Refill Neurological: Alert, No Motor/Sensory Deficits Psychiatric: Normal Affect Skin Exam: Warm, Dry, Intact, Normal Color, No Rash Course - Vital Signs Last Recorded V/S: Last Vital Signs Temp 36.8 C 07/23/21 21:59 Pulse 90 07/23/21 22:34 Resp 20 07/23/21 21:59 BP 180/85 H 07/23/21 22:34 Pulse Ox 96 07/23/21 21:59 - Orders/Labs/Meds Meds: Medications Discontinued Medications Generic Name Dose Route Start Last Admin Trade Name Freq PRN Reason Stop Dose Admin Lisinopril 5 mg 07/23/21 22:16 07/23/21 22:34 Lisinopril 5 Mg Tab PO 07/23/21 22:17 5 mg ONETIME ONE Administration Metoprolol Succinate 100 mg 07/23/21 22:17 07/23/21 22:34 Metoprolol Succinate 50 Mg Tab.Er PO 07/23/21 22:18 100 mg ONETIME STA Administration - Re-Assessments/Exams Free Text/Narrative Re-Assessment/Exam: 07/23/21 22:19 The patient will be given 5 mg of lisinopril and 100 mg of metoprolol succinate here in the ED, and I will submit a prescription for the same, for 7 days, that the patient can start tomorrow. It is incumbent upon the patient to follow-up with RAY Maldonado, this week to get a full refill of her prescriptions. Departure - Departure Time of Disposition: 22:20 Disposition: Home, Self-Care 01 Condition: Good Clinical Impression: Medication refill, Hypertension - Discharge Information *PRESCRIPTION DRUG MONITORING PROGRAM REVIEWED*: Not Applicable *COPY OF PRESCRIPTION DRUG MONITORING REPORT IN PATIENT ADRYAN: Not Applicable Prescriptions: lisinopriL [Lisinopril] 1 tab PO QAM #7 tablet Metoprolol Succinate 1 tab PO QAM #7 tab.er.24h Instructions: How to Take Your Blood Pressure, [id number], Hypertension, Adult, [id number] Referrals: Everardo Trevino PA-C [Primary Care Provider] - Forms: ED Department Discharge Additional Instructions: You were seen in the emergency room requesting a refill of your lisinopril and metoprolol succinate. You were treated with a single dose of each in the ER, and a prescription for a 7-day supply of each has been sent to the [facility] located in the [place] store. Take 1 tablet of lisinopril and 1 tablet of metoprolol succinate every morning, starting tomorrow morning, 07/24/2021, as prescribed. It is imperative that you follow-up with your PCP, RAY Maldonado, this week, in order to get a full refill of your medications. If any other problems, please do not hesitate to return to the ER. Sepsis Event Note (ED) - Focused Exam Vital Signs: Vital Signs Temp Pulse Pulse Resp BP BP Pulse Ox 07/23/21 22:34 90 180/85 H 07/23/21 21:59 36.8 C 90 20 180/85 H 96
== END 2021-07-23 22:37 | disposition home or self-care (01) ==
LOC: JD.ED 21:39
DX: I10 Essential (primary) hypertension (principal); E78.00 Pure hypercholesterolemia, unspecified; E11.9 Type 2 diabetes mellitus without complications; Z76.0 Encounter for issue of repeat prescription; Z79.82 Long term (current) use of aspirin; Z79.899 Other long term (current) drug therapy
CPT/HCPCS: 99281; A9270

== ENCOUNTER 2021-12-25 10:02 | Emergency (ER) | payer MEDICARE, MEDICAID ==
[2021-12-25 10:15] VITALS: PULSE 63
[2021-12-25] MEDS ORDERED: Nitroglycerin 0.3 MG Tab.SL SL PRN (10:25)
[2021-12-25 10:39] VITALS: BP 165/69
[2021-12-25] MEDS ORDERED: Aspirin 81 MG Tab.Chew PO ONE (13:17)
== END 2021-12-25 14:32 | disposition home or self-care (01) ==
LOC: JD.ED 10:02
DX: I10 Essential (primary) hypertension (principal); R07.9 Chest pain, unspecified; E78.00 Pure hypercholesterolemia, unspecified; E11.9 Type 2 diabetes mellitus without complications; Z79.82 Long term (current) use of aspirin; Z79.899 Other long term (current) drug therapy
CPT/HCPCS: 36415; 80053; 81001; 84484; 85025; 85379; 85610; 93005; 99285; A9270

== ENCOUNTER 2021-12-25 20:00 | Emergency (ER) | payer MEDICARE, MEDICAID ==
[2021-12-25 20:13] VITALS: BP 181/73
== END 2021-12-25 21:05 | disposition home or self-care (01) ==
LOC: JD.ED 20:00
DX: I11.9 Hypertensive heart disease without heart failure (principal); E78.00 Pure hypercholesterolemia, unspecified; E11.9 Type 2 diabetes mellitus without complications; Z79.82 Long term (current) use of aspirin; Z79.899 Other long term (current) drug therapy
CPT/HCPCS: 93005; 99283; 99284-25

== ENCOUNTER 2022-09-13 16:29 | Emergency (ER) | payer MEDICARE, MEDICAID ==
[2022-09-13 16:55] VITALS: BP 180/75; PULSE 68
[2022-09-13] MEDS ORDERED: Pseudoephedrine 30 MG Tab PO ONE (17:29)
[2022-09-13] MEDS ORDERED: Ibuprofen 600 MG Tab PO ONE (17:29)
[2022-09-13 18:24] LABS: CORONAVIRUS COVID-19 NAA NEGATIVE (NEGATIVE)
== END 2022-09-13 19:27 | disposition home or self-care (01) ==
LOC: JD.ED 16:29
DX: J01.90 Acute sinusitis, unspecified (principal); E78.00 Pure hypercholesterolemia, unspecified; I10 Essential (primary) hypertension; E11.9 Type 2 diabetes mellitus without complications; Z79.82 Long term (current) use of aspirin; Z79.899 Other long term (current) drug therapy; Z20.822 Contact with and (suspected) exposure to COVID-19
CPT/HCPCS: 0240U; 71045; 99283; A9270

== ENCOUNTER 2024-01-05 20:24 | Emergency (ER) | payer MEDICARE, MEDICAID ==
[2024-01-05 20:45] VITALS: BP 180/69
[2024-01-05 21:11] LABS: BASOPHILS PERCENT AUTO 0.4 % (0.0-1.0); EOSINOPHILS ABSOLUTE AUTO 0.6 K/mm3 (0.0-0.4); EOSINOPHILS PERCENT AUTO 7.8 % (0.0-6.0); HEMATOCRIT 36.3 % (37.0-47.0); HEMOGLOBIN 12.5 gm/dl (12.0-16.0); IMMATURE GRAN ABSOLUTE AUTO 0.02 K/mm3 (0.00-0.05); IMMATURE GRAN PERCENT AUTO 0.3 % (0.0-0.4); LYMPHOCYTES ABSOLUTE AUTO 2.1 K/mm3 (1.0-4.8); LYMPHOCYTES PERCENT AUTO 27.9 % (24.0-44.0); MEAN CORPUSCULAR HEMOGLOBIN 31.8 pg (28.0-32.0); MEAN CORPUSCULAR HGB CONC 34.4 g/dl (32.0-36.0); MEAN CORPUSCULAR VOLUME 92.4 fl (83.0-99.0); MEAN PLATELET VOLUME 10.2 fl (9.4-12.3); MONOCYTES ABSOLUTE AUTO 0.6 K/mm3 (0.0-0.8); MONOCYTES PERCENT AUTO 8.4 % (0.0-8.0); NEUTROPHILS ABSOLUTE AUTO 4.2 K/mm3 (1.8-7.7); NEUTROPHILS PERCENT AUTO 55.2 % (41.0-71.0); PLATELET COUNT,PLT 232 K/mm3 (150-400); RED BLOOD CELL COUNT 3.93 M/mm3 (4.10-5.30); WHITE BLOOD CELL COUNT,WBC 7.61 K/mm3 (3.9-11.3)
[2024-01-05 21:42] LABS: ALBUMIN 3.5 g/dl (3.4-5.0); ANION GAP 12.6 (5-15); BILIRUBIN TOTAL 0.2 mg/dL (0.2-1.0); BUN/CREATININE RATIO 32.5 (14-18); CALCIUM 8.6 mg/dL (8.5-10.1); CREATININE 0.8 mg/dL (0.55-1.02); EST CRCL DRUG DOSING (CG) 51.3 mL/min; MAGNESIUM 1.4 mg/dL (1.8-2.4); POTASSIUM,K 3.6 mEq/L (3.5-5.1); PROTEIN TOTAL,TP 7.1 g/dl (6.4-8.2)
[2024-01-05] MEDS: Sodium Chloride 0.9% 10 ML Syringe FLUSH PRN (21:42)
[2024-01-05] MEDS: Magnesium Sulfate/Water 2 GM in Premix Bag 1 BAG IV ONE (22:14)
[2024-01-05] MEDS: Sodium Chloride 0.9% 1,000 ML IV ONE (22:15)
[2024-01-05 22:17] LABS: APPEARANCE,URINE CLEAR (Clear); BILIRUBIN,URINE NEGATIVE (Negative); COLOR,URINE LIGHT YELLOW (Yellow); GLUCOSE,URINE NEGATIVE (Negative); KETONES,URINE NEGATIVE (Negative); LEUKOCYTE ESTERASE,URINE NEGATIVE (Negative); NITRITE,URINE NEGATIVE (Negative); OCCULT BLOOD,URINE 1+ (Negative); PROTEIN,URINE NEGATIVE (Negative); UROBILINOGEN,URINE 0.2 (0.2-1.0)
[2024-01-05 22:19] LABS: RBC,URINE 0-5 /hpf (0-5); SQUAMOUS EPITHELIAL CELLS,UR 0-5 /hpf (0-5); WBC,URINE 0-5 /hpf (0-5)
[2024-01-05 22:20] LABS: BACTERIA,URINE FEW /hpf (FEW); MUCUS,URINE FEW /hpf (FEW)
[2024-01-06 00:54] VITALS: PULSE 57
== END 2024-01-06 00:45 | disposition home or self-care (01) ==
LOC: JD.ED 20:24
DX: R07.89 Other chest pain (principal); I10 Essential (primary) hypertension; E83.42 Hypomagnesemia; E78.00 Pure hypercholesterolemia, unspecified; E11.9 Type 2 diabetes mellitus without complications; Z79.82 Long term (current) use of aspirin; Z79.84 Long term (current) use of oral hypoglycemic drugs; Z79.899 Other long term (current) drug therapy; Z90.49 Acquired absence of other specified parts of digestive tract
CPT/HCPCS: 36415; 71046; 71046-26; 80053; 81001; 83735; 84484; 85025; 93005; 96365; 96366; 99285-25; J3475; J3490; J7030

== ENCOUNTER 2024-01-07 21:38 | Emergency (ER) | payer MEDICARE, MEDICAID ==
[2024-01-07] MEDS: Sodium Chloride 0.9% 10 ML Syringe FLUSH PRN (22:55)
[2024-01-07 22:56] LABS: BASOPHILS PERCENT AUTO 0.5 % (0.0-1.0); EOSINOPHILS ABSOLUTE AUTO 0.8 K/mm3 (0.0-0.4); EOSINOPHILS PERCENT AUTO 9.1 % (0.0-6.0); HEMATOCRIT 36.8 % (37.0-47.0); HEMOGLOBIN 12.5 gm/dl (12.0-16.0); IMMATURE GRAN ABSOLUTE AUTO 0.01 K/mm3 (0.00-0.05); IMMATURE GRAN PERCENT AUTO 0.1 % (0.0-0.4); LYMPHOCYTES ABSOLUTE AUTO 2.5 K/mm3 (1.0-4.8); LYMPHOCYTES PERCENT AUTO 29.7 % (24.0-44.0); MEAN CORPUSCULAR HEMOGLOBIN 31.7 pg (28.0-32.0); MEAN CORPUSCULAR VOLUME 93.4 fl (83.0-99.0); MEAN PLATELET VOLUME 9.7 fl (9.4-12.3); MONOCYTES ABSOLUTE AUTO 0.7 K/mm3 (0.0-0.8); MONOCYTES PERCENT AUTO 8.2 % (0.0-8.0); NEUTROPHILS ABSOLUTE AUTO 4.4 K/mm3 (1.8-7.7); NEUTROPHILS PERCENT AUTO 52.4 % (41.0-71.0); PLATELET COUNT,PLT 234 K/mm3 (150-400); RED BLOOD CELL COUNT 3.94 M/mm3 (4.10-5.30); WHITE BLOOD CELL COUNT,WBC 8.45 K/mm3 (3.9-11.3)
[2024-01-07 23:19] VITALS: PULSE 50
[2024-01-08 00:07] LABS: ALBUMIN 3.7 g/dl (3.4-5.0); BILIRUBIN TOTAL 0.2 mg/dL (0.2-1.0); BUN/CREATININE RATIO 22.9 (14-18); CALCIUM 9.1 mg/dL (8.5-10.1); CREATININE 0.7 mg/dL (0.55-1.02); EST CRCL DRUG DOSING (CG) 59.15 mL/min; MAGNESIUM 1.6 mg/dL (1.8-2.4); PROTEIN TOTAL,TP 7.5 g/dl (6.4-8.2)
[2024-01-08 01:58] VITALS: BP 163/75
== END 2024-01-08 01:55 | disposition home or self-care (01) ==
LOC: JD.ED 21:38
DX: I10 Essential (primary) hypertension (principal); R07.89 Other chest pain; E78.00 Pure hypercholesterolemia, unspecified; E11.9 Type 2 diabetes mellitus without complications; Z79.82 Long term (current) use of aspirin; Z79.84 Long term (current) use of oral hypoglycemic drugs; Z79.899 Other long term (current) drug therapy
CPT/HCPCS: 36415; 80053; 83735; 84484; 85025; 93005; 99285; J3490

== ENCOUNTER 2024-01-08 20:45 | Emergency (ER) | payer MEDICARE, MEDICAID ==
[2024-01-08] MEDS: amLODIPine 5 MG Tab PO ONE (21:42)
[2024-01-08] MEDS: Hydrochlorothiazide 25 MG Tab PO ONE (21:42)
[2024-01-08 21:43] VITALS: BP 185/85
[2024-01-08 21:44] VITALS: PULSE 70
== END 2024-01-08 21:45 | disposition home or self-care (01) ==
LOC: JD.ED 20:45
DX: I10 Essential (primary) hypertension (principal); E11.9 Type 2 diabetes mellitus without complications; E78.00 Pure hypercholesterolemia, unspecified; Z79.82 Long term (current) use of aspirin; Z79.84 Long term (current) use of oral hypoglycemic drugs; Z90.49 Acquired absence of other specified parts of digestive tract; Z79.899 Other long term (current) drug therapy
CPT/HCPCS: 99283; A9270-GY